=== PATIENT | male | born 1960 | race Hispanic/Latino ===

== ENCOUNTER 2016-10-20 02:20 | Emergency (ER) | payer OTHER ==
[~2016-10-20] VITALS: Ht 175.3 cm; Wt 80.5 kg
[~2016-10-20 02:20] MED LIST changes: -CEPH-507 PO; -LORA10CA PO
[2016-10-20] MEDS ORDERED: TETANUS, DIPTHERIA, PERTUSSIS (ADACELL) VACCINE 0.5 ML VIAL IM ONE (02:50)
[2016-10-20] MEDS ORDERED: IBUPROFEN 200 MG (MOTRIN) TAB PO ONE (02:50)
[2016-10-20] MEDS ORDERED: ED- TRAMADOL 50 MG (ULTRAM) 6 TABLETS/BTL PO ONE (02:50)
[2016-10-20] MEDS ORDERED: ceFAZolin 1000 MG (ANCEF) VIAL IM ONE (02:50)
[2016-10-20] MEDS ORDERED: CEPH-507 PO ×2 (02:54→04:19)
[2016-10-20] MEDS ORDERED: LORA10CA PO (02:57)
[2016-10-20] MEDS ORDERED: WATER (STERILE) FOR INJECTION 10 ML ONE (03:33)
[2016-10-20 06:27] VITALS: BP 133/88
--- NOTE | 2016-10-20 10:14 | Diagnostic Imaging Report ---
EXAMINATION: Three views of right-sided fingers INDICATION: Injury to the tip of right third finger. FINDINGS: There is soft tissue injury involving the tip of the right third digit. There is no radiographic demonstration of fracture or injury to the distal tuft of the distal phalanx. IMPRESSION: 1. Soft tissue injury involving the tip of the right third digit but no evidence of underlying osseous abnormality. Dictated by: Dictated on workstation # [id number]
== END 2016-10-20 04:38 | disposition home or self-care (01) ==
LOC: ED 02:26
DX: S68.622A Partial traumatic transphalangeal amputation of right middle finger, initial encounter (principal); W31.9XXA Contact with unspecified machinery, initial encounter; Y92.63 Factory as the place of occurrence of the external cause; Y99.0 Civilian activity done for income or pay
CPT/HCPCS: 73140; 90471; 90715; 96372; 99283; J0690

== ENCOUNTER → 2016-10-20 | Outpatient (REF) ==
[~2016-10-20] MED LIST: AC500T PO; CEPH-507 PO; CETI10CA PO; FLUT16SP NS; LORA10CA PO; NF-ESOM40C PO
== END ==
LOC: EUOP 02:39
PROVIDERS: ATTEND Family Medicine
DX: Z02.83 Encounter for blood-alcohol and blood-drug test (principal); Z02.89 Encounter for other administrative examinations

== ENCOUNTER → 2017-01-22 | Outpatient (CLI) | payer OTHER ==
[~2017-01-22] MED LIST changes: +CEPH-507 PO; +LORA10CA PO
[2017-01-22 15:36] LABS: MEAN CORPUSCULAR HEMOGLOBIN 30.3 PG (26.0-34.0); MEAN CORPUSCULAR HGB CONC 35.1 g/dL (31.0-37.0); MEAN CORPUSCULAR VOLUME 86 FL (80-100); MEAN PLATELET VOLUME 9.5 FL (6.0-9.5); PLATELET COUNT 220 10^3uL (150-450); WHITE BLOOD COUNT 6.93 10^3uL (4.0-11.0)
[2017-01-22 15:45] LABS: BAND NEUTROPHILS % 0 % (0-6); EOSINOPHILS % 1 % (0-4); LYMPHOCYTES # 1.4 #; MONOCYTES # 0.5 #; MONOCYTES % 8 % (3-11); RBC MORPH NORMAL (NORMAL); SEGMENTED NEUTROPHILS % 71 % (51-67); TOTAL CELLS COUNTED 100
[2017-01-22 16:00] LABS: ALBUMIN 4.2 g/dL (3.4-5.0); ANION GAP 16.2 MEQ/L (3-15); CALCULATED IONIZED CALCIUM 3.9 mg/dL (3.8-4.6); TOTAL PROTEIN 7.3 g/dL (6.4-8.5)
== END ==
LOC: LAB 15:22
PROVIDERS: ATTEND Internal Medicine Hematology & Oncology
DX: C83.31 Diffuse large B-cell lymphoma, lymph nodes of head, face, and neck (principal)
CPT/HCPCS: 36415; 80053; 83615; 83735; 84100; 85007; 85027

== ENCOUNTER 2017-02-22 06:58 | Day surgery (SDC) | payer OTHER ==
[~2017-02-22] VITALS: Ht 175.3 cm; Wt 78.0 kg
[~2017-02-22 06:58] MED LIST changes: +LACTATED RINGERS 1,000 ML IV SCH; +SODIUM CHLORIDE FLUSH 10 ML SYR IV PRN; +SODIUM CHLORIDE FLUSH 3 ML SYR IV PRN
[2017-02-22] MEDS ORDERED: LIDOCAINE/EPINEPHRINE 1%-1:100,000 (XYLOCAINE) 20ML VIAL ONE (07:00)
[2017-02-22 07:07] VITALS: BP 138/86
[2017-02-22] MEDS ORDERED: MIDAZOLAM 2 MG/2 ML (VERSED) VIAL ONE (08:15)
[2017-02-22] MEDS ORDERED: PROPOFOL 40 ML IV ONE (09:12)
[2017-02-22] MEDS ORDERED: ALFENTANIL 500 MCG/ML (ALFENTA) 5 ML AMP IV ONE (09:12)
[2017-02-22 09:15] VITALS: BP 113/72
[2017-02-22 09:34] VITALS: BP 129/92
[2017-02-22 09:50] VITALS: BP 139/83
[2017-02-22 09:51] VITALS: BP 93/64
[2017-02-22] MEDS ORDERED: ONDANSETRON 2 MG/ML (Z0FRAN) 2 ML VIAL IV PRN (09:55)
[2017-02-22] MEDS ORDERED: ACETAMINOPHEN 500 MG TAB (TYLENOL) PO PRN (09:55)
[2017-02-22 10:07] VITALS: BP 133/88
--- NOTE | 2017-02-22 11:56 | OPERATIVE REPORT ---
DATE OF OPERATION: 02/22/2017 PRE-OPERATIVE DIAGNOSIS: History of lymphoma POST-OPERATIVE DIAGNOSIS: History of lymphoma OPERATIVE PROCEDURE: Removal of left subclavian PowerPort SURGEON: Kiko Grajeda MD ANESTHESIA: Monitored anesthesia care INDICATIONS: The patient is a 56-year-old under the care of Dr. Olvera who has completed chemotherapy for lymphoma and is here today for removal of his Indwelling PowerPort. DESCRIPTION OF PROCEDURE: The patient was informed of the risks and benefits and agreed to proceed. He was administered IV sedation and the left upper chest was prepped and draped in the standard sterile fashion. Then 1% lidocaine with epinephrine was injected in the skin above the port, and a transverse incision made with a #15 blade scalpel into the subcutaneous tissue. The underlying catheter was removed from the vein and the capsule around the port was opened with cautery. The indwelling Prolene sutures were cut and removed and the port was taken out of the capsule and out of the wound. Hemostasis was complete. I did oversew the catheter track with 3-0 Vicryl and then the subcutaneous tissue was reapproximated. The skin was closed with subcuticular 4-0 Monocryl and a dressing applied. The patient tolerated the procedure without complication.
== END 2017-02-22 10:13 | disposition home or self-care (01) ==
LOC: ASC 06:58
PROVIDERS: ATTEND Surgery
DX: Z45.2 Encounter for adjustment and management of vascular access device (principal); Z85.72 Personal history of non-Hodgkin lymphomas; J45.909 Unspecified asthma, uncomplicated
CPT/HCPCS: 36590; J2250; J7120